=== PATIENT | male | born 1985 | race Asian ===

== ENCOUNTER 2019-02-07 17:39 | Emergency (ER) | payer OTHER ==
[~2019-02-07] VITALS: Ht 165.1 cm; Wt 69.0 kg
[~2019-02-07 17:39] MED LIST: PREDNISONE 20 M20 MG PO; ZANTAC 150MG T150 MG PO
[2019-02-07] MEDS ORDERED: BUTALB-APAP-CA1 EACH PO (21:11)
[2019-02-07 21:25] VITALS: BP 123/60
== END 2019-02-07 21:25 | disposition home or self-care (01) ==
LOC: ER 17:39
DX: S06.0X1A Concussion with loss of consciousness of 30 minutes or less, initial encounter (principal); V89.2XXA Person injured in unspecified motor-vehicle accident, traffic, initial encounter; Y93.89 Activity, other specified; Y92.89 Other specified places as the place of occurrence of the external cause; Y99.8 Other external cause status